=== PATIENT | male | born 1995 | race African-American/Black ===

== ENCOUNTER 2018-03-01 15:25 | Emergency (ER) | payer SELFPAY ==
[2018-03-01 15:26] VITALS: BP 142/74; PULSE 71; RESP 16; TEMP 36.4; O2SAT 99; BMI 26.2
--- NOTE | 2018-03-01 15:35 | CT_ITS ---
STUDY: CT SOFT TISSUE NECK WITH CONTRAST REASON FOR EXAM: Male, 22 years old. Neck pain. RADIATION DOSAGE (If Supplied By Facility): CTDIvol = ( 18.62 ) mGy, DLP = ( 595.21 ) mGycm TECHNIQUE: The patient was scanned in a multi-detector CT scanner. High resolution transaxial imaging was performed following intravenous administration of 100ML ml of Isovue 300 contrast material. Sagittal and coronal images were reconstructed. Individualized dose optimization techniques were used for this CT. COMPARISON: None. FINDINGS: Normal bilateral parotid glands. Normal bilateral certified technician specialist spaces. Normal bilateral parapharyngeal spaces. Normal bilateral carotid spaces. Normal bilateral submandibular glands and spaces. Normal visualized nasopharynx. Normal retropharyngeal space. Normal perivertebral space. Normal visualized bilateral faucial tonsils. The visualized tongue, tongue base and oropharynx are normal. The visualized cervical lymph nodes (levels I-) are within normal size limits, and maintain normal morphology. There is no demonstrated solid or cystic mass lesion. There is no abnormal contrast enhancement. Normal epiglottis, bilateral vallecula and hypopharynx. The pre-epiglottic and paraglottic adipose spaces are normal. Normal visualized bilateral piriform sinuses, aryepiglottic folds, vocal cords, and arytenoid-cricoid articulations. Normal subglottic trachea. Normal bilateral lobes of the thyroid gland. Normal visualized pulmonary apices. Normal visualized paranasal sinuses. Normal visualized cervical spine. CT/Soft Tissue Neck WITH Contrast IMPRESSION: Normal enhanced CT examination of the soft tissues of the neck. Electronically Signed: Louisa Magallanes MD at 17:34 EST Tel , Service support ,
--- NOTE | 2018-03-01 15:37 | ED.VISSUMM ---
- ER Visit Summary Date of Service: 03/01/18 Chief Complaint: Sore throat History of Present Illness: The patient is a 22 M presenting with sore throat. This started yesterday. Patient has painful swallowing but he is able to swallow. No drooling. States the pain is worse on the right side. He had no fever. He has associated rhinorrhea. He denies cough. He has history of strep throat and states this feels similar. Denies other complaints. Physical Examination: Vitals are stable. Patient is afebrile. Alert no acute distress. HEENT exam tonsillar erythema and exudate, right greater than left. Uvula midline Neck is supple. No meningismus Lungs are clear and equal bilaterally. Heart is regular rate and rhythm. Extremities are unremarkable. Skin is warm and dry. No rash Remainder of exam is unremarkable. Emergency Department Course and Treatment: Patient is given Decadron, Toradol. Rapid strep is positive. CT soft tissue neck is normal enhanced CT examination of the soft tissues of the neck. Patient has improvement of his symptoms on reevaluation. He is given Bicillin IM. Advised to follow-up with Dr. Montenegro horizontal boring mill set up operator for no doc. Advised return to ED for worsening complaints. Disposition: Discharge home Impression: Strep pharyngitis This note was generated with [employer] dictation software. It may contain incorrect words, spelling, and punctuation that were not noted in review of the chart prior to signing ED Disposition - Plan for ED Patient: Chief Complaint: Sore Throat
--- NOTE | 2018-03-01 15:40 | ED.DCSUM_ITS ---
- ER Visit Summary Date of Service: 03/01/18 Chief Complaint: Sore throat History of Present Illness: The patient is a 22 M presenting with sore throat. This started yesterday. Patient has painful swallowing but he is able to swallow. No drooling. States the pain is worse on the right side. He had no f ever. He has associated rhinorrhea. He denies cough. He has history of strep throat and states this feels similar. Denies other complaints. Physical Examination: Vitals are stable. Patient is afebrile. Alert no acute distress. HEENT exam tonsillar erythema and exudate, right greater than left. Uvula midline Neck is supple. No meningismus Lungs are clear and equal bilaterally. Heart is regular rate and rhythm. Extremities are unremarkable. Skin is warm and dry. No rash Remainder of exam is unremarkable. Emergency Department Course and Treatment: Patient is given Decadron, Toradol. Rapid strep is positive. CT soft tissue neck is normal enhanced CT examination of the soft tissues of the neck. Patient has improvement of his symptoms on reevaluation. He is given Bicillin IM. Advised to follow-up with Dr. Montenegro farm operations technical director for no doc. Advised return to ED for worsening complaints. Disposition: Discharge home Impression: Strep pharyngitis This note was generated with [employer] dictation software. It may contain incorrect words, spelling, and punctuation that were not noted in review of the chart prior to signing ED Disposition - Plan for ED Patient: Chief Complaint: Sore Throat
[2018-03-01] MEDS: Ketorolac 30 MG/ML Syringe IV (16:16)
--- NOTE | 2018-03-01 17:44 | ED.DEP ---
ED Disposition - Plan for ED Patient: Chief Complaint: Sore Throat Instructions: ED Strep Pharyngitis Conf Referrals: Fracisco Montenegro DO [STAFF PHYSICIAN] -
[2018-03-01] MEDS: Penicillin G Benzathine 1.2 MU/2 ML Syringe IM (17:58)
[2018-03-01 18:21] VITALS: BP 126/71; PULSE 55; RESP 18
== END 2018-03-01 18:38 | disposition home or self-care (01) ==
LOC: ED 15:55
PROVIDERS: Emergency Provider Emergency Medicine
DX: J02.0 Streptococcal pharyngitis (principal); Z72.0 Tobacco use
CPT/HCPCS: 70491; 87880; 96372; 96374; 99284; Q9967; A4216

== ENCOUNTER 2020-07-15 05:53 | Emergency (ER) | payer MEDICAID, SELFPAY ==
[2020-07-15] VITALS (9 sets, daily range): BP systolic 127–160; BP diastolic 69–85; PULSE 45–59; RESP 14–16; TEMP 36.6; O2SAT 93–99; BMI 25.7
--- NOTE | 2020-07-15 06:24 | RAD_ITS ---
STUDY: X-RAY CHEST REASON FOR EXAM: Male, 24 years old. mediastinal eval . Kidney mass. COVID-19 positive for 2 days. TECHNIQUE: Single frontal view of the chest. COMPARISON: None. FINDINGS: There are no confluent pulmonary infiltrates. There is no demonstrated pleural abnormality. Normal size heart. Normal mediastinum and tio. Normal visualized aortic arch and descending thoracic aorta. There are no demonstrated acute fractures or destructive bone lesions. There is no demonstrated abnormality of the visualized soft tissue structures of the upper abdomen. RAD/Chest 1 View (Portable) IMPRESSION: Normal x-ray examination of the chest. Electronically Signed: Boni Perez MD at 7:26 EDT , Service support ,
--- NOTE | 2020-07-15 06:25 | CT_ITS ---
STUDY: CT ABDOMEN AND PELVIS WITH CONTRAST REASON FOR EXAM: Male, 24 years old. left flank pain, adrenal mass RADIATION DOSAGE (If Supplied By Facility): CTDIvol = ( 11.44 ) mGy, DLP = ( 1510.11 ) mGycm TECHNIQUE: Transaxial images were obtained from the dome of the diaphragm to the symphysis pubis without oral contrast. IV 100mL Isovue-300 was administered. Sagittal and coronal images were reconstructed. Individualized dose optimization techniques were used for this CT. COMPARISON: None. FINDINGS: The visualized lung bases are unremarkable. The visualized portions of the heart are within normal limits. Normal liver. Normal gallbladder and extrahepatic biliary system. Normal spleen. Normal pancreas. Large peripherally enhancing mass of the left adrenal gland (6.1 x 5.6 cm) is demonstrated with adjacent fluid/edema along the medial and posterior margin extending posterior to the left kidney. No rebecca contrast extravasation/pseudoaneurysm is seen although fluid shows some degree of enhancement on delayed imaging. Normal right kidney. Normal left kidney. Normal visualized stomach. Normal small intestine. Normal colon. The appendix is visualized and appears normal. Normal abdominal aorta. Normal inferior vena cava. Normal retroperitoneum. Normal urinary bladder. Normal abdominal wall. Normal osseous structures. CT/Abdomen/Pelvis W IV Cont ONLY IMPRESSION: 1. 6.1 x 5.6 cm peripherally hypervascular left adrenal mass with adjacent fluid/hematoma/hemorrhage. No rebecca active extravasation/pseudoaneurysm. Differential considerations favor pheochromocytoma,adrenal cortical carcinoma or less likely myelolipoma. Correlation with prior imaging/workup may be useful. Electronically Signed: Desmond Henderson MD ([place]) at 8:14 EDT , Service support ,
--- NOTE | 2020-07-15 06:26 | ED.VIS.GEN ---
History of Present Illness Chief Complaint: Flank Pain Informant: Patient Onset: Days - 2 Context: Sudden Onset Timing: Continuous Quality: pain Location: left flank Current Severity: Moderate Maximum Severity: Severe Worsened by: movement Relieved by: remaining still Associated Symptoms: none Narrative: Patient went to [place] for several days to visit family member. His home is here in [facility]. 2 days ago from now, he had sudden onset of pain in his left flank, pain became severe he went to the local ER and had a CT with IV contrast that showed a 7 x 5.3 cm left adrenal mass with active extravasation of blood creating a significant hematoma that extended into the perinephric space and posterior pararenal space. Other than the CT report and imaging, no other records were sent with the patient, but he states they admitted him to the hospital for 1 day and stabilized me, followed by letting me ride with my mom back to [place] so I could go to a hospital back home which apparently was his preference. He states that they arrived here in town and came directly to the ER here. At this time other than pain, he denies any other symptoms. No fevers, chills, lightheadedness/near syncope/syncope, shortness of breath, urinary symptoms. While there getting testing, he tested positive for Covid. It is unknown if it was a rapid antigen or PCR test. He denies having had any Covid symptoms. Also denies being in contact with anyone that he knows of with Covid. - Past Medical History (1) Asthma Status: Chronic Past Medical History - Allergies and Home Meds Allergies/Adverse Reactions: Allergies No Known Allergies Allergy (Verified 07/15/20 05:58) Primary Care Physician: Care Physician,No Primary [Primary Care Provider] - Smoking Status: Current every day smoker Review of Systems General: Denies: Chills, Fever, Malaise, Sweats, Weight loss Eyes: Denies: Visual changes - bilaterally, Diplopia ENT: Denies: Bilateral ear pain, Rhinorrhea, Sore throat Cardiovascular: Denies: Chest pain, Palpitations Respiratory: Denies: Dyspnea, Cough, Dyspnea on exertion Gastrointestinal: Reports: Abdominal pain. Denies: Nausea, Vomiting, Diarrhea, Melena, Hematochezia Genitourinary: Denies: Dysuria, Hematuria, Frequency Musculoskeletal: Reports: Back pain. Denies: Swelling, Extremity Pain Skin: Denies: Rash, Wounds Neurological: Denies: Headache, Weakness, Numbness Endocrine: Denies: Polyuria, Polydipsia, Heat intolerance, Cold intolerance Hematologic: Denies: Easy bruising, Easy bleeding Allergy: Denies: Uticaria, Swelling of the mouth, Swelling of the tongue Physical Exam Vital Signs/Narrative: Vital Signs Temp Pulse Resp BP Pulse Ox 07/15/20 05:56 97.9 F 59 L 16 137/85 H 99 Inital Vital Signs reviewed: Yes General: Well nourished, Well developed, No Acute Distress Head: Normocephalic, Atraumatic Eyes: Perrl, EOMI ENT: Moist mucous membranes, No rhinorrhea Neck: Supple, Nontender Cardiovascular: Regular rate, Regular rhythm, No murmurs Respiratory: No distress, CTA bilaterally, Chest nontender Abdomen: Soft, Nondistended, Normal bowel sounds, Tender - throughout left side. Negative for: Guarding, Rebound tenderness Back: Normal Inspection, CVA tenderness - left only Extremities: Nontender, No edema Skin: Normal color, No rash, No Trauma, - - no gonzalez padilla sign or Brennon sign Neurological: Alert, Oriented x3, Cranial nerves II-XII grossly intact, Normal Strength, Normal Sensation, Normal Gait Psychological: Normal affect, Normal Mood Diagnostic/Tx/Re-eval Clinical Impression(s) from Imaging Studies Chest X-Ray 07/15/20 06:24 IMPRESSION: Normal x-ray examination of the chest. Electronically Signed: Boni Perez MD at 7:26 EDT , Service support , Abdomen/Pelvis CT 07/15/20 06:25 IMPRESSION: 1. 6.1 x 5.6 cm peripherally hypervascular left adrenal mass with adjacent fluid/hematoma/hemorrhage. No rebecca active extravasation/pseudoaneurysm. Differential considerations favor pheochromocytoma,adrenal cortical carcinoma or less likely myelolipoma. Correlation with prior imaging/workup may be useful. Electronically Signed: Desmond Henderson MD ([place]) at 8:14 EDT , Service support , Laboratory Results 07/15/20 07/15/20 07/15/20 06:33 06:33 06:33 WBC 11.8 H RBC 5.91 Hgb 12.1 L Hct 39.1 L MCV 66.2 L MCH 20.5 L MCHC 30.9 L RDW Std Deviation 34.4 L RDW Coeff of Isabell 15.1 H Plt Count 367 MPV 10.1 Immature Gran % (Auto) 0.300 Neut % (Auto) 54.5 Lymph % (Auto) 32.9 [place] % (Auto) 9.6 Eos % (Auto) 2.4 Baso % (Auto) 0.3 Absolute Neuts (auto) 6.4 Absolute Lymphs (auto) 3.87 Nucleated RBC % 0 Sodium 136 Potassium 4.1 Chloride 100 Carbon Dioxide 31.0 Anion Gap 5 BUN 7 Creatinine 0.86 Estim Creat Clear Calc 124.90 Est GFR (MDRD) Af Amer 140 Est GFR (MDRD) Non-Af 116 BUN/Creatinine Ratio 8.1 L Glucose 96 Calcium 9.3 Blood Type AB POSITIVE Antibody Screen NEGATIVE - Medical Decision Making Patient was treated with IV fluids, morphine for his pain, he is clinically and hemodynamically stable. Given the CT report showing active extravasation and large hematoma which was performed on 07/13/2020 at 8 AM, the CT is being repeated with IV contrast. CT shows similar mass with surrounding perinephric hematoma as his previous scan does, however there is currently no active extravasation/bleeding. He is a little anemic with a hemoglobin just over 12, but with stable vital signs and at that number he does not need transfusion at this time. Discussed with Dr. Fox who advises transfer to tertiary care center that has surgical oncology availability. The patient's Covid PCR returned negative, which is likely accurate given his lack of symptoms, and he probably had a false positive rapid antigen test in [place]. Patient prefers to be transferred to [facility], I discussed with her transfer center, we are awaiting a callback for a bed. ED Disposition - Plan for ED Patient: Disposition: [facility] Diagnosis: Left adrenal mass, Retroperitoneal bleeding Referrals: Care Physician,No Primary [Primary Care Provider] -
[2020-07-15 06:40] LABS: Absolute Lymphocyte Count 3.87 X10^3/uL (0.83-4.51); Absolute Neutrophil Count 6.4 X10^3/uL (2.0-7.7); Basophil# 0.03 X10^3/uL; Basophil% 0.3 % (0-1); Eosinophil# 0.28 X10^3/uL; Eosinophils% 2.4 % (0-5); Hematocrit 39.1 % (40-54); Hemoglobin 12.1 g/dL (13.0-16.5); Lymphocyte # 3.87 X10^3/ul (4.0); Lymphocyte % 32.9 % (19-41); Mean Corp Hgb Conc 30.9 g/dL (32-36); Mean Corpuscular Hgb 20.5 pg (27.0-32.0); Mean Corpuscular Volume 66.2 fL (80-94); Mean Platelet Vol. 10.1 fl (6.2-12.0); Monocyte# 1.13 X10^3/uL; Monocyte% 9.6 % (0-10); NRBC Flagged by Analyzer 0 % (0-5); Neutrophil # 6.43 X10^3/uL (2.7-7.7); Neutrophil % 54.5 % (47-70); POSITIVE MORPHOLOGY YES; Platelet Count 367 K/mm3 (150-450); RBC Distribution Width CV 15.1 % (11.6-14.6); RBC Distribution Width SD 34.4 fl (35.1-43.9); Red Blood Count 5.91 M/mm3 (4.6-6.2); White Blood Count 11.8 K/mm3 (4.4-11.0)
[2020-07-15 06:47] LABS: Differential Indicated SCAN CRITERIA MET
[2020-07-15 06:54] LABS: Anion Gap 5 (5-15); BUN 7 mg/dL (7-18); BUN/Creat Ratio 8.1 RATIO (10-20); Calcium,Total 9.3 mg/dL (8.5-10.1); Chloride 100 mmol/L (98-107); Creatinine, Serum 0.86 mg/dL (0.70-1.30); EST Glomerular Filtration Rate 116 mL/min (>60); Est Glom Filt Rate - Afr Amer 140 mL/min (>60); Glucose 96 mg/dL (74-106); Potassium 4.1 mmol/L (3.5-5.1); Sodium Level 136 mmol/L (136-145)
[2020-07-15] MEDS: Morphine 4 MG/ML Syringe IV ×3 (07:36→16:47)
[2020-07-15] MEDS: 0.9% Normal Saline 1,000 ML 999 ML IV (07:36)
[2020-07-15 07:57] LABS: Probe Check PASS; Specimen Processing Control PASS
--- NOTE | 2020-07-15 14:11 | ED.RN ---
mother complaining about all the nurses and
--- NOTE | 2020-07-15 14:16 | ED.RN ---
dr herrera aware that mother is demanding to speak to him. mother requesting to switch transfering hospitals.
--- NOTE | 2020-07-15 14:19 | ED.RN ---
informed mother that dr. herrera is aware that she wants to speak with him.
--- NOTE | 2020-07-15 14:22 | ED.RN ---
dr. herrera in room speaking with pt and mother.
--- NOTE | 2020-07-15 14:23 | ED.RN ---
PER [facility] WE ARE STILL WAITING ON A BED. 22 PTS WAITING IN THEIR ER PER [facility].
[2020-07-15] MEDS: HYDROmorphone 1 MG/ML Syringe IV (14:36)
--- NOTE | 2020-07-15 14:37 | ED.RN ---
pt states that his pain is an 8 out of 10 but is playing on his phone in a relaxed position with no facial grimacing.
--- NOTE | 2020-07-15 14:40 | ED.RN ---
mother remains at bedside, taking notes while staff is in the room.
--- NOTE | 2020-07-15 15:18 | ED.RN ---
ATTEMPTED TO CALL REPORT, NURSE IS WITH ANOTHER PT AND WILL CALL BACK.
--- NOTE | 2020-07-15 15:56 | ED.RN ---
PT AND MOTHER AWARE PT HAS A ROOM AND THAT TRANSPORT IS APPROXIMATELY 90 MIN TO 2 HOURS.
== END 2020-07-15 17:53 | disposition short-term general hospital (02) ==
PROVIDERS: Emergency Provider Emergency Medicine
DX: E27.9 Disorder of adrenal gland, unspecified (principal); R58 Hemorrhage, not elsewhere classified; D64.9 Anemia, unspecified; J45.909 Unspecified asthma, uncomplicated; Z20.822 Contact with and (suspected) exposure to COVID-19; F17.200 Nicotine dependence, unspecified, uncomplicated; Z79.899 Other long term (current) drug therapy
CPT/HCPCS: 71045; 74177; 80048; 85025; 86850; 86900; 86901; 87635; 96361; 96374; 96375; 96376; 99285; J7030; Q9967; A4216; U0002

== ENCOUNTER 2022-02-13 12:59 | Emergency (ER) | payer MEDICAID, SELFPAY ==
[2022-02-13 13:00] VITALS: BP 143/92; PULSE 76; RESP 15; TEMP 35.8; O2SAT 98; BMI 26.6
--- NOTE | 2022-02-13 13:48 | RAD_ITS ---
STUDY: X-RAY CHEST REASON FOR EXAM: Male, 26 years old. Chest pain, vomiting TECHNIQUE: PA and lateral views of the chest. COMPARISON: 2020 FINDINGS: The lungs are clear and expanded. There is no demonstrated pleural abnormality. Normal size heart. Normal mediastinum and tio. Normal visualized pulmonary arteries. Normal visualized aortic arch and descending thoracic aorta. Normal visualized thoracic spine. Normal visualized ribs, clavicles, and shoulders. There is no demonstrated abnormality of the visualized soft tissue structures of the upper abdomen. RAD/Chest PA and Lateral IMPRESSION: Normal x-ray examination of the chest. Electronically Signed: Jose David Horne MD at 14:35 EDT ,
[2022-02-13] MEDS: 0.9% Normal Saline 1,000 ML 1000 ML IV (14:02)
[2022-02-13] MEDS: Famotidine 200 MG/20 ML MDV 20 MG in 0.9% Normal Saline (Pres. free 8 ML 300 MG IV (14:02)
[2022-02-13] MEDS: Ondansetron 4 MG/2 ML Vial IV (14:02)
[2022-02-13 14:15] LABS: Absolute Lymphocyte Count 3.11 X10^3/uL (0.83-4.51); Absolute Neutrophil Count 4.7 X10^3/uL (2.0-7.7); Basophil# 0.04 X10^3/uL; Basophil% 0.5 % (0-1); Eosinophil# 0.09 X10^3/uL; Eosinophils% 1.1 % (0-5); Hematocrit 43.4 % (40-54); Hemoglobin 13.7 g/dL (13.0-16.5); Lymphocyte # 3.11 X10^3/ul (0.83-4.51); Mean Corp Hgb Conc 31.6 g/dL (32-36); Mean Corpuscular Hgb 21.2 pg (27.0-32.0); Mean Corpuscular Volume 67.3 fL (80-94); Mean Platelet Vol. 10.7 fl (6.2-12.0); Monocyte# 0.48 X10^3/uL; Monocyte% 5.7 % (0-10); NRBC Flagged by Analyzer 0 % (0-5); Neutrophil # 4.66 X10^3/uL (2.7-7.7); Neutrophil % 55.5 % (47-70); Platelet Count 234 K/mm3 (150-450); RBC Distribution Width CV 16.9 % (11.6-14.6); RBC Distribution Width SD 36.3 fl (35.1-43.9); Red Blood Count 6.45 M/mm3 (4.6-6.2); White Blood Count 8.4 K/mm3 (4.4-11.0)
[2022-02-13 14:20] LABS: ALB/GLOB Ratio 0.9 RATIO (0.9-2.4); AST(SGOT) 21 U/L (15-37); Alanine Aminotransfer ALT/SGPT 35 U/L (16-61); Albumin, Serum 3.6 g/dL (3.2-5.0); Alkaline Phosphatase 53 U/L (45-117); Anion Gap 5 (5-15); BUN 9 mg/dL (7-18); BUN/Creat Ratio 8.3 RATIO (10-20); Calcium,Total 8.9 mg/dL (8.5-10.1); Chloride 111 mmol/L (98-107); Creatinine, Serum 1.08 mg/dL (0.70-1.30); EST Glomerular Filtration Rate 88 mL/min (>60); Est Glom Filt Rate - Afr Amer 107 mL/min (>60); Estimated Creatinine Clearance 97.76 ml/min; Globulin 3.8 g/dL (2.2-4.2); Glucose 101 mg/dL (74-106); Lipase 296 U/L (73-393); Potassium 4.6 mmol/L (3.5-5.1); Protein, Total 7.4 g/dL (6.4-8.2); Sodium Level 145 mmol/L (136-145)
--- NOTE | 2022-02-13 15:45 | ED.VIS.GI ---
HPI HPI - GI History of Present Illness Chief Complaint: Abd Pain Informant: patient and friend Narrative Narrative: Patient is a 26-year-old male presenting with nausea, vomiting abdominal pain. Patient states he drank last night and had 3 shots of alcohol and 1 beer. He states its not overly large amount for him. He started having nausea vomiting started at 930 this morning. Is mostly been green and yellow but he thinks he may be spit up a little bit of streaks of blood as well. Denies any coffee-ground substance. Last threw up while walking into the ER. Does not have any significant abdominal pain right now but just feels sore. D did have some swelling and redness around his eyes from all of the retching. Has a history of a mass/cyst taken off the top of his left kidney but denies any other abdominal surgeries. No other complaints at this time. Patient notes he is having chills today. He states for the past few weeks he has been having night sweats. It is not dependent on what he drinks or how much he drinks. PFSH PFSH Medical History no medical history Home Medications famotidine 20 mg tablet (Pepcid) 20 mg PO BID #30 tabs 02/13/22 [Rx Last Taken Unknown] ondansetron 4 mg disintegrating tablet 4 mg PO Q6H PRN nausea and vomiting #20 tabs 02/13/22 [Rx Last Taken Unknown] Allergy/AdvReac Type Severity Reaction Status Date / Time No Known Allergies Allergy Verified 02/13/22 13:00 Social History Smoking Status: Current every day smoker tobacco type: cigarettes ROS ROS ED Constitutional Constitutional ED: Reports chills and sweats; Denies fever(s) ENT ENT ED: Denies rhinorrhea or sore throat Cardiovascular Cardiovascular: Denies chest pain or palpitations Respiratory/Chest Respiratory/Chest: Denies cough or dyspnea Gastrointestinal Gastrointestinal: Reports abdominal pain, nausea and vomiting; Denies constipation or diarrhea Genitourinary Genitourinary ED: Denies dysuria or hematuria Musculoskeletal Musculoskeletal: Denies arthralgias or myalgias Integumentary Denies rash Neurologic Neurologic: Reports weakness; Denies headache(s) Psychiatric Psychiatric: Denies anxiety Hematologic/Lymphatic Hematologic/Lymphatic: Denies easy bleeding or easy bruising EXAM Physical Exam Const Vital Signs: 02/13/22 13:00 02/13/22 15:56 02/13/22 16:19 Temperature 96.4 F L Temperature Source Temporal Pulse Rate 76 82 Respiratory Rate 15 16 17 Blood Pressure 143/92 H Blood Pressure Mean 109 Pulse Ox 98 98 Oxygen Delivery Method Room Air Room Air Positive well nourished and well developed General Appearance ED: well developed and NAD HEENT Reports moist mucous membranes normocephalic and atraumatic Eyes PERRL and EOMs intact bilaterally Eyes Narrative: Subtle periorbital edema with petechia of the eyelids present Neck supple and no JVD Neck Narrative: No crepitus appreciated Chest Wall Chest Narrative: Nontender. No chest wall crepitus. Resp normal respiratory effort and clear to auscultation bilaterally Effort and Inspection: Negative for respiratory distress Cardio regular rate, regular rhythm and no murmurs GI non-tender and non-distended Auscultation: normoactive bowel sounds Palpation: soft and tender Back/Spine no CVA tenderness Extremity full ROM Neuro CN's II-XII intact bilaterally and moves all extremities Motor Exam: general weakness Psych mental status grossly normal and thought process normal Skin no wounds Skin Narrative: Petechial changes to the bilateral eyelids consistent with forceful retching Rashes: no rashes Trauma: Negative for abrasion MDM MDM MDM Narrative Medical decision making narrative: Patient is evaluated for nausea and vomiting. He appears nontoxic but uncomfortable. Patient is given IV fluids, Pepcid and Zofran. On repeat evaluation he feels better. Lab work largely unremarkable. On repeat evaluation he tells me that he is been having night sweats for couple of weeks. Patient does not have an IV source of infection overall is well-appearing. Is counseled on decreasing alcohol use and given a follow-up referral with primary care doctor for further evaluation of these night sweats. Patient counseled on return precautions. Discharged home in stable condition. Lab Data Attestation: I reviewed the patient's lab results. Labs: Laboratory Results - last 24 hr 02/13/22 02/13/22 13:45 13:45 WBC 8.4 RBC 6.45 H Hgb 13.7 Hct 43.4 MCV 67.3 L MCH 21.2 L MCHC 31.6 L RDW Std Deviation 36.3 RDW Coeff of Isabell 16.9 H Plt Count 234 MPV 10.7 Immature Gran % (Auto) 0.200 Neut % (Auto) 55.5 Lymph % (Auto) 37.0 [place] % (Auto) 5.7 Eos % (Auto) 1.1 Baso % (Auto) 0.5 Absolute Neuts (auto) 4.7 Absolute Lymphs (auto) 3.11 Nucleated RBC % 0 Sodium 145 Potassium 4.6 Chloride 111 H Carbon Dioxide 29.0 Anion Gap 5 BUN 9 Creatinine 1.08 Estim Creat Clear Calc 97.76 Est GFR (MDRD) Af Amer 107 Est GFR (MDRD) Non-Af 88 BUN/Creatinine Ratio 8.3 L Glucose 101 Calcium 8.9 Total Bilirubin 0.70 AST 21 ALT 35 Alkaline Phosphatase 53 Total Protein 7.4 Albumin 3.6 Globulin 3.8 Albumin/Globulin Ratio 0.9 Lipase 296 Radiography Diagnostic Testing: Clinical Impression(s) from Imaging Studies Chest X-Ray 02/13/22 13:48 IMPRESSION: Normal x-ray examination of the chest. Electronically Signed: Jose David Horne MD at 14:35 EDT , Discharge Plan Triage Chief Complaint: Abd Pain ED Provider: Arabella Tai Dx/Rx/DC Orders Clinical Impression: Nausea and vomiting Instructions: ED Vomiting (Adult), ED Abdominal Pain Unkn Cause Male... Prescriptions: New ondansetron 4 mg tablet,disintegrating 4 mg PO Q6H PRN (Reason: nausea and vomiting) Qty: 20 0RF famotidine [Pepcid] 20 mg tablet 20 mg PO BID Qty: 30 0RF Primary Care Provider: Care Physician,No Primary Referrals: Magali Henning MD [Med Staff - [employer]] - Care Physician,No Primary [Primary Care Provider] - Activity Restrictions/Additional Instructions: Decrease your alcohol use. Follow-up with a primary care doctor. Return with worsening symptoms. Your lab work and vital signs were normal today. Disposition Disposition: Home, Self Care Discharge Date/Time: 02/13/22 16:21
[2022-02-13 15:56] VITALS: RESP 16
[2022-02-13 16:19] VITALS: PULSE 82; RESP 17; O2SAT 98
== END 2022-02-13 16:21 | disposition home or self-care (01) ==
PROVIDERS: Emergency Provider Emergency Medicine; Visit Provider Emergency Medicine
DX: R11.2 Nausea with vomiting, unspecified (principal); R10.9 Unspecified abdominal pain; F17.210 Nicotine dependence, cigarettes, uncomplicated
CPT/HCPCS: 71046; 80053; 83690; 85025; 99283; J7030; A4216; J2405; J3490